=== PATIENT | female | born 1960 | race Caucasian/White ===

== ENCOUNTER 2021-12-12 11:28 | Emergency (ER) | payer OTHER ==
[~2021-12-12] VITALS: Ht 154.9 cm; Wt 76.2 kg
--- NOTE | 2021-12-12 11:35 | NUR ---
[id number] GLF C/O LT HIP PAIN -SHORTENING -KO. PLACED ON BED, AAOX4, IN PAIN 04/20. SEEN AND EXAMINED BY DR PUCKETT
[2021-12-12] MEDS ORDERED: ACETAMINOPHEN ES 500 MG TABLET ONE (11:48)
--- NOTE | 2021-12-12 11:56 | NUR ---
X-RAY TECH. AT BED SIDE
[2021-12-12] MEDS ORDERED: ACETAMINOPHEN ES 500 MG TABLET PO ONE (12:00)
[2021-12-12 12:07] LABS: BASOPHILS % (AUTO) 0.4 % (0.0-2.0); EOSINOPHILS % (AUTO) 1.3 % (0.0-6.0); HEMATOCRIT 32 % (33-45); HEMOGLOBIN 10.9 g/dL (11.5-14.8); LYMPHOCYTES # (AUTO) 1.1 K/uL (0.8-4.8); LYMPHOCYTES % (AUTO) 15.6 % (20.0-44.0); MEAN CORPUSCULAR HGB CONC 34 g/dl (31.0-36.0); MEAN CORPUSCULAR VOLUME 84 fL (82-100); MONOCYTES # (AUTO) 0.5 K/uL (0.1-1.30); MONOCYTES % (AUTO) 6.9 % (2.0-12.0); NEUTROPHILS # (AUTO) 5.4 K/uL (1.8-8.9); NEUTROPHILS % (AUTO) 75.8 % (43.0-81.0); PLATELET COUNT (AUTO) 361 K/uL (150-450); RED BLOOD CELL COUNT(AUTO) 3.86 MIL/uL (4.0-5.2); WHITE BLOOD COUNT (AUTO) 7.1 K/uL (4.3-11.0)
[2021-12-12 12:21] LABS: ALBUMIN 3.2 g/dL (3.4-5.0); BILIRUBIN,DIRECT 0.1 mg/dL (0.0-0.2); BILIRUBIN,TOTAL 0.5 mg/dL (0.2-1.0); CALCIUM, SERUM 9.2 mg/dL (8.5-10.1); CREATININE 0.8 mg/dL (0.6-1.3); POTASSIUM 3.6 mmol/L (3.5-5.1)
[2021-12-12] MEDS ORDERED: HYDROCODONE/APAP 5/325MG TABLET PO ONE (15:00)
[2021-12-12] MEDS ORDERED: HYDROCODONE/APAP 5/325MG TABLET ONE (15:03)
[2021-12-12] MEDS ORDERED: MORPHINE SULFATE INJ 2 MG/ML DISP.SYRIN IV ONE ×2 (15:30→19:30)
--- NOTE | 2021-12-12 15:30 | NUR ---
DR. WEAVER SPEAKING WITH DR. GARCIA
--- NOTE | 2021-12-12 15:41 | NUR ---
NELY REGAL [phone] REGAL REQUESTING CLINICALS TO [phone]
[2021-12-12] MEDS ORDERED: MORPHINE SULFATE INJ 4 MG/ML DISP.SYRIN ONE ×2 (16:03→19:28)
--- NOTE | 2021-12-12 18:46 | NUR ---
RECIEVED CALL FROM PANEL MAKER N[facility] PT OPTIONS FOR SNF ADMISSION: [facility] DOCTOR REQUESTED LUMBAR BINDER NELY [phone]
[2021-12-12] MEDS ORDERED: ONDANSETRON HCL/PF 4 MG/2 ML VIAL ONE (19:28)
[2021-12-12] MEDS ORDERED: ONDANSETRON HCL/PF 4 MG/2 ML VIAL IV ONE (19:30)
--- NOTE | 2021-12-12 19:38 | NUR ---
[facility] 107 bed b number for report [phone] eta for transport is 2300 via [facility] [phone] for christina lopez.
[2021-12-12] MEDS ORDERED: METOCLOPRAMIDE HCL 10 MG/2 ML VIAL ONE (20:58)
[2021-12-12] MEDS ORDERED: METOCLOPRAMIDE HCL 10 MG/2 ML VIAL IV ONE (21:00)
--- NOTE | 2021-12-12 21:31 | NUR ---
telephone call to [facility] at [phone] to give report, no answer after several attempts. will try again
--- NOTE | 2021-12-12 21:43 | NUR ---
telephone call to [facility] at [phone] to give report, spoke with Amy stated patient is not showing on their list, was told she will verify with admitting first and will call back. Per Antonette Abbott, she said patient is accepted at [facility].
--- NOTE | 2021-12-12 21:53 | NUR ---
REPORT GIVEN TO NANCY AT [facility]. PT WILL BE ADMITTED TO ROOM 114 BED A.
--- NOTE | 2021-12-12 21:58 | NUR ---
PT TRANSFERRED TO [facility] VIA BLS PROTOCOL IN STABLE CONDITION ACCOMPANIED BY SON AND 2 EMT PERSONNEL. REPORT GIVEN TO FANY EMT
[2021-12-12 21:59] VITALS: BP 130/68
== END 2021-12-12 21:59 ==
LOC: ER 11:29
DX: S32.019A Unspecified fracture of first lumbar vertebra, initial encounter for closed fracture (principal); X58.XXXA Exposure to other specified factors, initial encounter; Y92.89 Other specified places as the place of occurrence of the external cause; Z96.611 Presence of right artificial shoulder joint; I10 Essential (primary) hypertension; Z20.822 Contact with and (suspected) exposure to COVID-19; M25.512 Pain in left shoulder; M25.511 Pain in right shoulder; R10.9 Unspecified abdominal pain; M25.552 Pain in left hip; M25.551 Pain in right hip; M54.2 Cervicalgia
CPT/HCPCS: 36415; 70450; 71045; 72125; 72170; 73030 ×2; 73060; 73590 ×2; 74176; 80048; 80076; 85025; 85730; 87426; 93005; 96374; 96375; 96376; 99285; C9803; J2270 ×2; J2405; J2765

== ENCOUNTER 2023-12-17 23:37 | Emergency (ER) | payer OTHER ==
[~2023-12-17] VITALS: Ht 157.5 cm; Wt 104.3 kg
[2023-12-18] MEDS ORDERED: MORPHINE SULFATE INJ 4 MG/ML DISP.SYRIN ONE (00:18)
[2023-12-18] MEDS ORDERED: ONDANSETRON 4 MG TAB.RAPDIS ONE (00:18)
[2023-12-18] MEDS: ONDANSETRON 4 MG TAB.RAPDIS SL ONE (00:19)
[2023-12-18] MEDS: MORPHINE SULFATE INJ 2 MG/ML DISP.SYRIN IM ONE (00:19)
[2023-12-18] MEDS ORDERED: ACETAMINOPHEN ES 500 MG TABLET ONE (00:24)
[2023-12-18] MEDS: ACETAMINOPHEN ES 500 MG TABLET PO ONE (00:27)
[2023-12-18] MEDS ORDERED: CLONIDINE HCL 0.1 MG TABLET ONE (00:58)
[2023-12-18] MEDS: CLONIDINE HCL 0.1 MG TABLET PO ONE (00:59)
[2023-12-18 01:40] VITALS: BP 174/88; TEMP 98.5; O2SAT 98
== END 2023-12-18 02:27 | disposition home or self-care (01) ==
LOC: ER 23:44
DX: S80.02XA Contusion of left knee, initial encounter (principal); S80.01XA Contusion of right knee, initial encounter; S40.012A Contusion of left shoulder, initial encounter; S50.12XA Contusion of left forearm, initial encounter; I10 Essential (primary) hypertension; W18.30XA Fall on same level, unspecified, initial encounter; Y93.89 Activity, other specified; Y92.89 Other specified places as the place of occurrence of the external cause; Y99.8 Other external cause status
CPT/HCPCS: 73060-TC; 73080-TC; 73090-TC; 73130-TC; 73564-TC; J2270; Q0162